=== PATIENT | male | born 1955 | race Caucasian/White ===

== ENCOUNTER 2020-08-20 07:49 | Day surgery (SDC) | payer OTHER ==
[~2020-08-20] VITALS: Ht 175.3 cm; Wt 50.8 kg
[~2020-08-20 07:49] MED LIST: Aspir 8181 MG; Flomax0.4 MG; MAGNESIUM OXID500 MG PO; MULTI-VITAMIN1 EAC2; PRAV20 PO
--- NOTE | 2020-08-20 09:10 | NUR ---
08/20/20 0910 Lynn Garcia PT UPDATED ON DELAY IN START TIME DUE TO PREVIOUS CASE RUNNING LONGER THAN EXPECTED. BATHROOM RUN OFFERED, PT DECLINED. BED IN LOW, LOCKED POSITION, CALL LIGHT IN REACH.
== END 2020-08-20 10:32 | disposition home or self-care (01) ==
LOC: ORSCSDS 07:49
PROVIDERS: Internal Medicine Gastroenterology
PROC: 0DBL8ZX Excision of Transverse Colon, Via Natural or Artificial Opening Endoscopic, Diagnostic (ICD-10-PCS; principal; 2020-08-20 09:00)
DX: Z12.11 Encounter for screening for malignant neoplasm of colon (principal); D12.3 Benign neoplasm of transverse colon; K64.8 Other hemorrhoids; Z87.891 Personal history of nicotine dependence; Z85.46 Personal history of malignant neoplasm of prostate; E78.5 Hyperlipidemia, unspecified; Z79.899 Other long term (current) drug therapy; Z79.82 Long term (current) use of aspirin
CPT/HCPCS: 88305; J2704; J7120

== ENCOUNTER → 2024-12-21 | Outpatient (CLI) | payer OTHER ==
[~2024-12-21] MED LIST changes: +BUME1 PO; +FUROSEMIDE20 MG PO; +KLOR-CON 1010 ME9 PO; +XARELTO20 M1 PO
[2024-12-23 10:22] LABS: Stool Occult Bld Immuno 1 Positive (NEGATIVE); Stool Occult Bld Immuno 2 Positive (NEGATIVE); Stool Occult Bld Immuno 3 Negative (NEGATIVE)
== END ==
LOC: LAB 15:30 → LAB SHORT 15:30
PROVIDERS: Physician Assistant
DX: D64.9 Anemia, unspecified (principal)
CPT/HCPCS: 82274